=== PATIENT | female | born 1990 | race Caucasian/White ===

== ENCOUNTER 2020-04-02 13:05 | Emergency (ER) | payer OTHER, SELFPAY ==
[2020-04-02 13:20] VITALS: PULSE 101; RESP 17; TEMP 37.1; O2SAT 98
--- NOTE | 2020-04-02 13:38 | ED.URI ---
HPI - URI/Sore Throat General Chief Complaint: Upper Respiratory Infection Stated Complaint: sore throat Source: patient Mode of arrival: ambulatory Limitations: no limitations History of Present Illness HPI Narrative: Hoarse this AM, hurts to swallow. Concerned about strep. Review of Systems Constitutional: Constitutional: Denies fever(s) Respiratory: Respiratory: Denies cough and Denies dyspnea Gastrointestinal: Gastrointestinal: Denies nausea and Denies vomiting PMFSH Past Medical History Medical History (Updated 04/02/20 @ 13:43 by Suresh Pugh MD) ADHD Asthma Bipolar 1 disorder Exam Const: General: no acute distress HENMT: Mouth: Yes Normal oral and palatal mucosa present and Yes moist mucous membranes Throat: posterior oropharynx normal Eyes: Conjunctivae: conjunctivae normal Neck: Neck: no lymphadenopathy Chest: Chest palpation & inspection: normal inspection of the chest Resp: Effort & Inspection: normal respiratory effort Auscultation: clear to auscultation bilaterally MDM - URI/Sore Throat Differential Diagnosis Differential diagnosis: Likely upper respiratory infection and pharyngitis Medical Records Attestation: I reviewed the patient's medical records. Lab Data Labs: Lab Results 04/02/20 Range/Units 13:06 Grp A Beta Strep Ag Negative Discharge Plan Discharge Clinical Impression: Laryngitis, Laryngitis, acute Patient Disposition: Home, Self-Care Condition: Stable Instructions: Laryngitis (ED) Follow-up/Referrals: Lance,SHANE Smith [Primary Care Provider] - Stand Alone Forms: Work/School Release IP Time of Disposition: 13:42
== END 2020-04-02 14:00 | disposition home or self-care (01) ==
PROVIDERS: Emergency Provider Family Medicine; PCP Physician Assistant
DX: J04.0 Acute laryngitis (principal)
CPT/HCPCS: 87081; 87880; 99282; 99283

== ENCOUNTER 2020-04-20 16:46 | Emergency (ER) | payer OTHER, SELFPAY ==
--- NOTE | 2020-04-20 17:09 | ED.GENADULT ---
HPI - General Adult General Chief complaint: Unspecified Stated complaint: pt wants to get a preg test Time Seen by Provider: 04/20/20 17:09 Source: patient Mode of arrival: ambulatory Limitations: no limitations History of Present Illness HPI narrative: 30-year-old woman comes in today complaining of breast tenderness, fatigue, nausea and mild abdominal pain that started approximately 1 week ago. Patient states that she took a home test that was faintly positive. Her last period was about 4 weeks ago and was typical in nature. She has had some spotting in the last few days. She has had no fever, dysuria, hematuria, discharge, cough or cold symptoms, vomiting or diarrhea. MD complaint: Might be Onset (ago): week(s) (1) Location: abdomen Radiation: non-radiation Severity: mild Pain Consistency: constant Relieving factors: none Exacerbating factors: none Associated symptoms: other ( as per HPI) Treatments prior to arrival: none Related Data Home Medications Medication Instructions Recorded Confirmed aripiprazole 10 mg PO DAILY 04/02/20 04/20/20 lisdexamfetamine [Vyvanse] 10 mg PO DAILY 04/02/20 04/20/20 Allergies Allergy/AdvReac Type Severity Reaction Status Date / Time No Known Allergies Allergy Verified 04/02/20 13:45 Review of Systems Constitutional: Constitutional: Denies chills, Reports fatigue, Denies fever(s) and Denies weakness Eyes: Eyes: Denies change in vision and Denies photophobia ENT: Denies dysphagia, Denies nasal congestion and Denies sore throat Cardiovascular: Cardiovascular: Denies chest pain and Denies radiating jaw, neck or arm pain Respiratory: Respiratory: Denies cough and Denies dyspnea Gastrointestinal: Gastrointestinal: Reports abdominal pain, Denies diarrhea, Reports nausea and Denies vomiting Genitourinary: Genitourinary: Denies hematuria, Denies nocturia and Denies dysuria Musculoskeletal: Musculoskeletal: Denies arthralgias and Denies joint swelling Integumentary/Breasts: Skin/Breast: Denies pruritus, Denies erythema and Denies rash Neurologic: Denies vertigo, Denies dizziness and Denies syncope Hematologic/Lymphatic: Hematologic/Lymphatic: Denies easy bleeding and Denies easy bruising Allergic/Immunologic: Allergic/Immunologic: Denies lip swelling, Denies throat swelling and Denies tongue swelling PMF Past Medical History Medical History ADHD Asthma Bipolar 1 disorder Exam Const: General: healthy appearing, no acute distress and alert Nutritional Appearance: well nourished Orientation/consciousness: patient oriented x3 HENMT: Head: normal to inspection Face and sinus: normal facial exam Mouth: Yes moist mucous membranes Throat: posterior oropharynx normal Eyes: Conjunctivae: conjunctivae normal Pupils: Equal, round and reactive pupils present EOM: EOMs intact bilaterally Resp: Effort & Inspection: normal respiratory effort and not labored Auscultation: clear to auscultation bilaterally, no rales, no rhonchi and no wheezes Cardio: Rate: regular rate Rhythm: regular rhythm Heart sounds: no murmurs GI: Inspection: non-distended GI Palp: Yes Soft to palpation, No Tenderness to palpation present (GI), No Guarding due to palpation present (GI), No Rigid due to palpation and No Palpable mass present Skin: General skin exam: normal color, no jaundice and no pallor Rashes: no rashes Neuro: General: patient oriented x3, moves all extremities, no meningeal signs, no focal motor deficits and CN's II-XI intact bilaterally Speech: normal speech Gait exam (Neuro): Normal gait present Extrem: General: normal to inspection and no clubbing, cyanosis or edema Psych: Appearance: grossly normal and well kempt Mental Status: mental status grossly normal Affect: normal affect Attitude: cooperative Thought content: Yes Normal thought content present Discharge Plan Discharge Clinical Impr
[2020-04-20 17:10] VITALS: BP 109/61; PULSE 90; RESP 16; TEMP 36.6; O2SAT 100
[2020-04-20 18:10] VITALS: RESP 16
== END 2020-04-20 18:10 | disposition home or self-care (01) ==
PROVIDERS: Emergency Provider Emergency Medicine; PCP Physician Assistant
DX: R11.0 Nausea (principal)
CPT/HCPCS: 36415; 84702; 99283

== ENCOUNTER 2020-05-13 12:06 | Emergency (ER) | payer OTHER, SELFPAY ==
[2020-05-13 12:30] VITALS: BP 128/62; PULSE 71; RESP 20; TEMP 37.3; O2SAT 100
[2020-05-13 13:12] LABS: Influenza Control Valid (Valid)
--- NOTE | 2020-05-13 13:16 | ED.FEVER ---
HPI - Fever General Stated Complaint: fever runny nose earache Source: patient Mode of arrival: ambulatory Limitations: no limitations History of Present Illness HPI Narrative: This is a 30-year-old female presents with some sore throat fever up to 101, had taken Tylenol prior to arrival current temperature is 98? with a cough that is nonproductive with nasal congestion frontal sinus pressure with no shortness of breath no nausea vomiting no abdominal pain. MD elicited complaint: fever Onset (ago): day(s) Associated symptoms: headache, nasal congestion, sore throat and cough Related Data Home Medications Medication Instructions Recorded Confirmed aripiprazole 10 mg PO DAILY 04/02/20 04/20/20 lisdexamfetamine [Vyvanse] 10 mg PO DAILY 04/02/20 04/20/20 Allergies Allergy/AdvReac Type Severity Reaction Status Date / Time No Known Allergies Allergy Verified 04/02/20 13:45 Review of Systems Review of Systems: All systems reviewed & are unremarkable except as noted in HPI and below PMFSH Past Medical History Medical History ADHD Asthma Bipolar 1 disorder Exam Const: General: no acute distress and alert Orientation/consciousness: patient oriented x3 HENMT: Head: normal to inspection Eyes: Conjunctivae: conjunctivae normal Pupils: Equal, round and reactive pupils present Neck: Neck: normal visual inspection Chest: Chest palpation & inspection: normal inspection of the chest Resp: Effort & Inspection: normal respiratory effort Auscultation: clear to auscultation bilaterally Cardio: Rate: regular rate Rhythm: regular rhythm GI: GI Palp: Yes Soft to palpation : General: Yes no CVA tenderness Skin: General skin exam: normal color Rashes: no rashes Psych: Mental Status: mental status grossly normal 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 MDM - Fever Lab Data Labs: Lab Results 05/13/20 05/13/20 Range/Units 12:36 12:36 Influenza Type A Ag Negative (Negative) Influenza Type B Ag Negative (Negative) SARS-CoV-2 RNA (RT-PCR) Pending Grp A Beta Strep Ag Negative Critical Care Time Critical Care Time Critical Care Time: No Discharge Plan Discharge Clinical Impression: Sinusitis Qualifiers: Sinusitis location: frontal Chronicity: acute Recurrence: recurrent Qualified Code(s): J01.11 - Acute recurrent frontal sinusitis Patient Disposition: Still a Patient Condition: Stable Instructions: Sinusitis (ED) Additional Instructions: can take Claritin [id number] as needed along with prescribed medication, follow-up with primary care physician if symptoms persist or worsen. Prescriptions: New azithromycin [Zithromax Z-Rayo] 250 mg tablet See Rx Instructions .ROUTE .COMPLEX Qty: 6 RF: 0 No Action ondansetron 4 mg tablet,disintegrating 4 mg PO Q6H PRN (Reason: nausea and vomiting) Qty: 7 RF: 0 aripiprazole 10 mg tablet 10 mg PO DAILY RF: 0 Vyvanse 50 mg capsule 10 mg PO DAILY RF: 0 Follow-up/Referrals: Lance,SHANE Smith [Primary Care Provider] - Time of Disposition: 13:20
[2020-05-13 13:26] VITALS: RESP 17
[2020-05-14 14:05] LABS: SARS-CoV-2 RNA PCR Negative
== END 2020-05-13 13:26 | disposition home or self-care (01) ==
PROVIDERS: Emergency Provider Emergency Medicine; PCP Physician Assistant
DX: J01.11 Acute recurrent frontal sinusitis (principal)
CPT/HCPCS: 87081; 87635; 87804; 87880; 99283; C9803; U0003

== ENCOUNTER 2020-07-10 04:05 | Emergency (ER) | payer OTHER, SELFPAY ==
--- NOTE | ~2020-07-10 | CT_ITS ---
EXAMINATION: CT brain wo con INDICATION: Dizziness COMPARISON: None TECHNIQUE: Standard unenhanced head CT. The dose-length product (DLP) was 605.33 mGy-cm. The mA was a djusted according to patient size. Iterative reconstruction technique was employed. FINDINGS: There is no intracranial hemorrhage, acute infarction, or abnormal mass lesion. The ventric les are normal. There is no abnormal mass effect or midline shift. The umanzor-white matter differentiat ion is normal. The basal cisterns are patent. The orbits are normal. The paranasal sinuses, mastoids and calvarium are normal. IMPRESSION: 1. No acute intracranial abnormality. Reviewed, dictated and finalized at location A. HT LOSS PHYSICIAN
--- NOTE | 2020-07-10 04:17 | PC.NURSE ---
arrived at 230am, to waiting room.. Rate Marker in code situation, patient checked on [employer] security
[2020-07-10 04:18] VITALS: BP 110/70; PULSE 72; RESP 18; TEMP 37.1; O2SAT 96
--- NOTE | 2020-07-10 04:51 | ECG_ITS ---
Measurements Intervals [place] Rate: 47 P: 42 OR: 128 QRS: 61 QRSD: 85 T: 44 QT: 426 QTc: 377 Interpretive Statements SINUS BRADYCARDIA ABNORMAL ECG Electronically Signed On 07-11-2020 18:06:11 [employer] by Kameron Teixeira D.O.
[2020-07-10] MEDS: SODIUM CHLORIDE 0.9% IV 1,000 ML 999 ML IV CONT (05:00)
[2020-07-10 05:10] LABS: Add Urine Microscopic? YES; Appearance Urine Clear (Clear); Bilirubin Urine Negative (Negative); Blood Urine Negative (Negative); Color Urine Yellow (Yellow); Glucose Urine UA Negative (Negative); Ketones Urine Negative (Negative); Leukocyte Esterase Ur 1+ LEU/UL (Negative); Nitrate Urine Negative (Negative); Protein Urine Negative (Negative); Specific Grav Ur 1.025 (1.010-1.020); Urobilinogen Urine 0.2 mg/dL (0.2-1.0); pH Urine 5.5 (5.0-8.0)
[2020-07-10 05:15] LABS: Basophils Absolute Auto 0.07 K/mm3 (0.00-0.10); Eosinophils Absolute Auto 0.12 K/mm3 (0.02-0.50); Eosinophils Percent Auto 1.7 % (1.0-6.0); Hematocrit 39.6 % (35.0-49.0); Hemoglobin 12.6 g/dL (12.0-15.0); Immature Granulocyte Absolute 0.01 K/mm3 (0.00-0.00); Immature Granulocyte Percent A 0.1 % (0.0-0.0); Immature Platelet Fraction Pct 12.7 % (1.0-7.0); Lymphocytes Absolute Auto 2.21 K/mm3 (1.10-4.50); Mean Corpuscular HGB Conc 31.8 g/dL (32.0-36.0); Mean Corpuscular Hemoglobin 28.8 pg (27.0-31.0); Mean Corpuscular Volume 90.4 fL (78.0-102.0); Mean Platelet Volume 13.2 fl (9.2-11.8); Monocytes Absolute Auto 0.43 K/mm3 (0.10-0.90); Neutrophils Absolute Auto 4.3 K/mm3 (1.7-7.2); Neutrophils Percent Auto 60.2 % (50.0-70.0); Platelet Count Result 166 K/mm3 (150-420); Red Blood Count 4.38 M/mm3 (4.20-5.40); Red Cell Distribution Width 13.4 % (11.6-14.4); White Blood Count 7.1 K/mm3 (4.8-10.8)
[2020-07-10 05:19] LABS: Bacteria Urine 1+ /hpf; RBC Urine 0-2 /hpf (0-2); Squamous Epithelial Cell Urine Few /hpf (Few)
[2020-07-10 05:21] LABS: INR 1.1; Partial Thromboplastin Time 24.3 SEC (22.3-31.6); Prothrombin Time 11.3 Seconds (9.64-11.0)
[2020-07-10 05:28] LABS: Alanine Aminotransferase 17 U/L (14-59); Albumin Level 4.2 g/dL (3.4-5.0); Alkaline Phosphatase 79 U/L (46-116); Anion Gap 9 mmol/L (8-16); Aspartate Amino Transferase 11 U/L (15-37); Bilirubin,Total 0.3 mg/dL (0.00-1.00); Blood Urea Nitrogen 13 mg/dL (7-18); Calcium 8.9 mg/dL (8.5-10.1); Carbon Dioxide 26 mmol/L (21-32); Chloride 104 mmol/L (98-108); Estimated CRCL calculation 70 ml/min; Estimated Glomerular Filt Rate > 60; Glucose 91 mg/dL (70-99); Osmolality Calculated 288 mOsm/kg (285-295); Potassium 4.4 mmol/L (3.5-5.1); Sodium 139 mmol/L (136-145); Total Protein 8.2 g/dL (6.4-8.2)
[2020-07-10 05:30] LABS: Troponin I < 0.02 ng/mL (0.00-0.056)
[2020-07-10 05:51] VITALS: BP 100/60; PULSE 60; RESP 16; O2SAT 95
[2020-07-10] MEDS: cefTRIAXone 1 GM VIAL IM (06:00)
--- NOTE | 2020-07-10 06:07 | ED.GENADULT ---
HPI - General Adult General Chief complaint: Unspecified Stated complaint: 30YO female w/ urinary frequency associated with feeling lightheaded starting this morning. Decided to come to ER instead of going to work. Related Data Home Medications Medication Instructions Recorded Confirmed aripiprazole [Abilify] See Rx Instructions .ROUTE .COMPLEX 07/10/20 07/10/20 dextroamphetamine-amphetamine 10 mg PO PRN PRN 07/10/20 07/10/20 [Adderall] Allergies Allergy/AdvReac Type Severity Reaction Status Date / Time No Known Allergies Allergy Verified 04/02/20 13:45 Review of Systems Review of Systems: All systems reviewed & are unremarkable except as noted in HPI and below Constitutional: Constitutional: Reports no additional constitutional complaints Eyes: Eyes: Reports no additional eye complaints ENT: Reports system reviewed and no additional complaints, except as documented Cardiovascular: Cardiovascular: Reports no additional cardiovascular complaints Respiratory: Respiratory: Reports no additional respiratory complaints Gastrointestinal: Gastrointestinal: Reports no additional gastrointestinal complaints Genitourinary: Genitourinary: Reports dysuria and Reports urinary urgency Musculoskeletal: Musculoskeletal: Reports no additional musculoskeletal complaints Integumentary/Breasts: Skin/Breast: Reports system reviewed and no additional complaints, except as docu Neurologic: Reports dizziness Psychiatric: Psychiatric: Reports no additional psychiatric complaints Endocrine: Endocrine: Reports no additional endocrine complaints Hematologic/Lymphatic: Hematologic/Lymphatic: Reports no additional hematologic/lymphatic complaints Allergic/Immunologic: Allergic/Immunologic: Reports no additional allergic/immunologic complaints [facility] Past Medical History Medical History (Updated 07/10/20 @ 06:13 by Manjeet Blackwood MD) ADHD Asthma Bipolar 1 disorder Social History Social History Gender identity (if verbalized by the patient): Female Exam Const: General: cooperative, healthy appearing, comfortable, no acute distress, well developed, alert and awake Nutritional Appearance: average body habitus HENMT: Head: normal to inspection Face and sinus: normal facial exam Mouth: Yes Normal oral and palatal mucosa present Teeth and gingiva: dentition normal Neck: Neck: normal visual inspection and full ROM Chest: Chest palpation & inspection: normal inspection of the chest Resp: Effort & Inspection: normal respiratory effort and able to speak in complete sentences Cardio: Jugular venous distension: no JVD Palpation: normal PMI Rate: regular rate Rhythm: regular rhythm GI: Inspection: normal to inspection Percussion: Yes normal to percussion Auscultation: normal bowel sounds Rectal Exam: deferred : General: Yes no CVA tenderness Skin: General skin exam: normal color and no rashes or lesions noted Neuro: General: oriented to person, oriented to place, oriented to time, patient oriented x3, gait normal, tone normal, moves all extremities, Normal light touch and pain sensation, no meningeal signs, no focal motor deficits and CN's II-XI intact bilaterally Cranial nerves: Yes CN's II-XII intact bilaterally Cognition (Neuro): normal cognition Speech: normal speech Gait exam (Neuro): Normal gait present Motor exam (neuro): 5/5 motor strength present throughout and No tremor noted Sensory Exam: normal sensation Extrem: General: normal to inspection Right lower extremity: normal to inspection Left lower extremity: normal to inspection and full ROM Psych: Appearance: grossly normal Mental Status: mental status grossly normal Speech and movement: Normal speech and movement present Affect: normal affect Attitude: cooperative Thought process: Normal thought process present Thought content: Yes Normal thought content present Insight: Good in
[2020-07-10 06:22] VITALS: BP 100/50; PULSE 60; RESP 16; TEMP 36.6; O2SAT 95
== END 2020-07-10 06:23 | disposition home or self-care (01) ==
PROVIDERS: Emergency Provider Family Medicine; PCP Physician Assistant
DX: N30.00 Acute cystitis without hematuria (principal)
CPT/HCPCS: 36415; 70450; 80053; 81001; 84484; 85025; 85055; 85610; 85730; 87086; 93005; 96360; 96372; 99283; 99284; J0696; J7030

== ENCOUNTER 2020-07-10 18:22 | Emergency (ER) | payer OTHER, SELFPAY ==
[2020-07-10 18:46] VITALS: BP 122/72; PULSE 74; RESP 18; TEMP 36.6; O2SAT 100
[2020-07-10] MEDS: SODIUM CHLORIDE 0.9% IV 1,000 ML 999 ML IV CONT (19:03)
[2020-07-10] MEDS: ONDANSETRON INJ 4 MG/2 ML VIAL IV PUSH (19:04)
--- NOTE | 2020-07-10 19:16 | ED.WEAKNESS ---
HPI - Weakness General Chief complaint: Weakness Stated complaint: Light headed vomitting Source: patient Mode of arrival: ambulatory Limitations: no limitations History of Present Illness HPI Narrative: Since 30-year-old female presents with history of UTI that was diagnosed earlier this morning while visiting the emergency department and discharged with some antibiotics. Patient throughout the day has been feeling weakness with nausea with low-grade fever and continued dysuria with a and weakness. Patient started on antibiotics and took her 1st dose today. no diarrhea or constipation no chest pain no shortness of breath. Complaint: generalized weakness Onset (ago): day(s) Duration: intermittent Location: generalized Migration: none Severity: mild Relieving factors: none Exacerbating factors: none Related Data Home Medications Medication Instructions Recorded Confirmed aripiprazole [Abilify] See Rx Instructions .ROUTE .COMPLEX 07/10/20 07/10/20 dextroamphetamine-amphetamine 10 mg PO PRN PRN 07/10/20 07/10/20 [Adderall] Allergies Allergy/AdvReac Type Severity Reaction Status Date / Time No Known Allergies Allergy Verified 04/02/20 13:45 Review of Systems Review of Systems: All systems reviewed & are unremarkable except as noted in HPI and below PMFSH Past Medical History Medical History (Updated 07/10/20 @ 19:21 by Rafy Bell MD) ADHD Asthma Bipolar 1 disorder Social History Social History Gender identity (if verbalized by the patient): Female Exam Const: General: no acute distress Orientation/consciousness: patient oriented x3 HENMT: Head: normal to inspection Eyes: Conjunctivae: conjunctivae normal Pupils: Equal, round and reactive pupils present Neck: Neck: normal visual inspection, no lymphadenopathy and no meningeal signs Chest: Chest palpation & inspection: normal inspection of the chest Resp: Effort & Inspection: normal respiratory effort Auscultation: clear to auscultation bilaterally Cardio: Rate: regular rate Rhythm: regular rhythm : General: Yes no CVA tenderness Urinary Catheter: Urinary Catheter: patent and draining Back/Spine/Pelvis: Back: no CVA tenderness Skin: General skin exam: normal color Rashes: no rashes Neuro: General: patient oriented x3, moves all extremities and no meningeal signs Psych: Appearance: grossly normal Mental Status: mental status grossly normal Affect: normal affect Thought content: Yes Normal thought content present Course Course Emergency Course: Reassessment of patient, patient did receive IV fluids and IV Zofran. Vital Signs Vital signs: Vital Signs Temperature 36.6 C 07/10/20 18:46 Pulse Rate 74 07/10/20 18:46 Respiratory Rate 18 07/10/20 18:46 Blood Pressure 122/72 07/10/20 18:46 Pulse Oximetry 100 07/10/20 18:46 Temperature 36.6 C 07/10/20 18:46 Pulse Rate 74 07/10/20 18:46 Respiratory Rate 18 07/10/20 18:46 Blood Pressure 122/72 07/10/20 18:46 Pulse Oximetry 100 07/10/20 18:46 Critical Care Time Critical Care Time Critical Care Time: No Discharge Plan Discharge Clinical Impression: Dehydration UTI (urinary tract infection) Qualifiers: Urinary tract infection type: acute cystitis Hematuria presence: without hematuria Qualified Code(s): N30.00 - Acute cystitis without hematuria Nausea & vomiting Qualifiers: Vomiting type: unspecified Vomiting Intractability: non-intractable Qualified Code(s): R11.2 - Nausea with vomiting, unspecified Patient Disposition: Home, Self-Care Condition: Stable Instructions: Antibiotic Form, Dehydration (ED), Acute Nausea and Vomiting (ED) Additional Instructions: take medicine as prescribed drink plenty of water and follow-up with primary care physician if symptoms persist or worsen. Prescriptions: New ondansetron HCl [Zofran] 4 mg tablet 4 mg PO
[2020-07-10 20:40] VITALS: BP 112/65; PULSE 61; RESP 16; O2SAT 100
== END 2020-07-10 20:41 | disposition home or self-care (01) ==
PROVIDERS: Emergency Provider Emergency Medicine; PCP Physician Assistant
DX: E86.0 Dehydration (principal); N30.00 Acute cystitis without hematuria; R11.2 Nausea with vomiting, unspecified
CPT/HCPCS: 96361; 96374; 99283; 99284; J2405; J7030